=== PATIENT | male | born 1960 | race Caucasian/White ===

== ENCOUNTER → 2016-12-11 | Outpatient (CLI) | payer MEDICARE, OTHER ==
[~2016-12-11] MED LIST: REGADENOSON 0.4 MG/5 ML SYRINGE IV ONE
--- NOTE | 2016-12-11 13:03 | NM ---
EXAMINATION TYPE: NM stress lexiscan cardiolite DATE OF EXAM: 12/11/2016 10:40 AM COMPARISON: 02/12/2013 HISTORY: Presurgical evaluation TECHNIQUE: After the intravenous administration of 10.2 mCi Tc 99m Sestamibi - Cardiolite resting SP ECT images acquired 45 minutes post injection. The patient received 0.4mg Lexiscan, 26.6 mCi Tc 99m Sestamibi - Stress images obtained [address] injection FINDINGS: Gated analysis shows normal wall motion with an estimated left ventricular ejection fraction of 61 % . There is diminished radiotracer accumulation along the inferior wall on resting images. This area is better visualized on the stress images. Prior infarct along the inferior wall should be considered. T his is an interval change from 2012. Gated wall motion is some mild distal anterior wall dyskinesia or hypokinesia. IMPRESSION: 1. No stress-induced ischemic changes. 2. Prior infarct inferior wall. 3. Mild hypokinesia or dyskinesia distal anterior wall.
--- NOTE | 2016-12-11 13:51 | EST ---
DATE OF SERVICE: 12/11/2016 AGE: 56Y SEX: M HT: 5'8: WT: 170 lbs. Lexiscan Cardiolite Stress Test *Heart Rate Blood Pressure *Rest: 64 Rest: 136/90 * *Max. Achieved: 94 Maximum BP: 145/90 85% PMHR: 139 100% PMHR: 163 *METS: - INDICATIONS: Preoperative. MEDICATIONS: Simvastatin, aspirin, [place]. CLINICAL INFORMATION: Preop evaluation, palpitations, hypercholesterolemia, family history of coronary artery disease, history of smoking 1 pack of cigarettes a day for 30 years. Quit smoking about a year ago. Patient is on simvastatin, aspirin, [place]. Going for surgery. Resting ECG shows sinus rhythm, rate of 64 beats per minutes, ID interval of 0.16, QRS 0.12, complete right bundle branch block. Using a standard Lexiscan protocol, Lexiscan was given IV push followed by serial EKGs without chest pain or pressure or ST segment deviations indicative of ischemia or cardiac arrhythmias. Patient tolerated the procedure very well. There were no complications during or at the completion of the procedure. IMPRESSION: 1. Baseline rhythm is sinus with complete right bundle-branch block, normal sinus rhythm. 2. Negative Lexiscan Cardiolite study. 3. Nuclear scintigrams to follow from Radiology Department.
== END | disposition home or self-care (01) ==
LOC: RADNMMAIN 07:53
PROVIDERS: ATTEND Family Medicine
DX: Z01.818 Encounter for other preprocedural examination (principal)
CPT/HCPCS: 93017; 78452; A9500; J2785

== ENCOUNTER 2022-09-22 16:08 | Emergency (ER) | payer MEDICARE, OTHER ==
--- NOTE | 2022-09-22 16:23 | ED ---
General Adult HPI - General Chief complaint: Chest Pain Stated complaint: chest pain - sent from urgent care Time Seen by Provider: 09/22/22 16:21 Source: patient Mode of arrival: ambulatory Limitations: no limitations - History of Present Illness Initial comments: Patient presents to the ED with his friend (sent from urgent care) complaining of having sharp and pleuritic left lateral chest pain since this morning. Patient states that his pain is worse with deep inspiration and with certain movements of his left arm and torso. Patient denies any known trauma or injury. Patient denies radiation of his pain, fever or chills, headache, focal neuro deficit, neck/arm/jaw/back pain, dyspnea, cough or cold symptoms, palpitations, dizziness, nausea/vomiting/diaphoresis, abdominal pain, dysuria or urinary symptoms, leg or calf swelling or pain, or any other symptoms or complaints. Patient states that he took a single baby aspirin this morning. - Related Data Home Medications Medication Instructions Recorded Confirmed Aspirin 81 mg PO DAILY 09/22/22 09/22/22 Meclizine HCl 25 mg PO TID PRN 09/22/22 09/22/22 Omeprazole [PriLOSEC] 20 mg PO DAILY 09/22/22 09/22/22 Simvastatin [Zocor] 20 mg PO HS 09/22/22 09/22/22 Tamsulosin [Flomax] 0.4 mg PO DAILY 09/22/22 09/22/22 Allergies Allergy/AdvReac Type Severity Reaction Status Date / Time No Known Allergies Allergy Verified 09/22/22 18:23 Review of Systems ROS Statement: Those systems with pertinent positive or pertinent negative responses have been documented in the HPI. ROS Other: All systems not noted in ROS Statement are negative. Past Medical History Past Medical History: Hyperlipidemia Additional Past Medical History / Comment(s): vertigo History of Any Multi-Drug Resistant Organisms: None Reported Past Surgical History: Ablation, Joint Replacement Additional Past Surgical History / Comment(s): left hip replacement, Past Psychological History: No Psychological Hx Reported Smoking Status: Former smoker Past Alcohol Use History: None Reported Past Drug Use History: Marijuana General Exam Limitations: no limitations General appearance: alert, in no apparent distress Head exam: Present: atraumatic, normocephalic Eye exam: Present: normal appearance, EOMI ENT exam: Present: mucous membranes moist Neck exam: Present: other (Trachea is in midline) Respiratory exam: Present: normal lung sounds bilaterally, other (Left anterolateral chest wall tenderness which reproduces the patient's pain; no ecchymosis, rash, deformity or crepitation is appreciated). Absent: respiratory distress, wheezes, rales, rhonchi, stridor Cardiovascular Exam: Present: regular rate, normal rhythm, normal heart sounds, other (Normal radial pulses bilaterally ) GI/Abdominal exam: Present: soft. Absent: distended, tenderness, guarding Extremities exam: Present: other (Negative Homans sign bilaterally ). Absent: tenderness, pedal edema, calf tenderness Neurological exam: Present: alert, oriented X3. Absent: motor sensory deficit Psychiatric exam: Present: normal affect, normal mood Skin exam: Present: warm, dry, intact, normal color Course Vital Signs 09/22/22 09/22/22 16:12 17:21 Temperature 97.2 F L Pulse Rate 65 63 Respiratory 18 20 Rate Blood Pressure 141/84 116/68 O2 Sat by Pulse 97 98 Oximetry - Reevaluation(s) Reevaluation #1: 09/22/22 19:26 Patient denies development of any new pain or symptoms while in the ED. Patient remains alert and breathing comfortably with a normal room air oxygen saturation. Patient and friend are aware the patient's test results, and patient feels comfortable being discharged home at this time. Patient was c ounseled about pleuritic chest pain/chest wall pain, and he was clearly explained return and follow-up instructions. Patient was instructed to follow up closely with his primary care provider. Patient feels comfortable with this plan. EKG Findings - EKG Comments: EKG Findings:: ED physician interpretation: Sinus bradycardia, ventricular rate of 58 bpm, no ectopy, right bundle branch block, normal MS interval, QRS duration of 130 ms, normal QT interval, normal axis, no ST abnormality Medical Decision Making - Medical Decision Making Was pt. sent in by a medical professional or institution (, PA, AUTOMOTIVE ELECTRICAL FITTER, urgent care, hospital, or long term...) When possible be specific @ -[No] Did you speak to anyone other than the patient for history (EMS, parent, family, police, friend...)? What history was obtained from this source @ -[No] Did you review nursing and triage notes (agree or disagree)? Why? @ -[I reviewed and agree with nursing and triage notes] Were old charts reviewed (outside hosp., previous admission, EMS record, old EKG, old radiological studies, urgent care reports/EKG's, long term records)? Report findings @ -[No old charts were reviewed] Differential Diagnosis (chest pain, altered mental status, abdominal pain women, abdominal pain men, vaginal bleeding, weakness, fever, dyspnea, syncope, headache, dizziness, GI bleed, back pain, seizure, CVA, palpatations, mental health)? @ -Differential Chest Pain: Stable Angina, Unstable Angina, STEMI, NSTEMI, Pneumothorax, Musculoskeletal, GERD, pleurisy, muscle strain, this is not meant to be an all-inclusive list. EKG interpreted by me (3pts min.). @ -[As above] X-rays interpreted by me (1pt min.). @ -Chest x-ray is negative CT interpreted by me (1pt min.). @ -[None done] U/S interpreted by me (1pt. min.). @ -[None done] What testing was considered but not performed or refused? (CT, X-rays, U/S, labs)? Why? @ -[None] What meds were considered but not given or refused? Why? @ -[None] Did you discuss the management of the patient with other professionals (professionals i.e. , PA, AUTOMOTIVE ELECTRICAL FITTER, lab, RT, psych nurse, manager social media, product handler, te acher, forward air controller/air officer, correctional case manager)? Give summary @ -[No] Was smoking cessation discussed for >3mins.? @ -[No] Was critical care preformed (if so, how long)? @ -[No] Were there social determinants of health that impacted care today? How? (Homelessness, low income, unemployed, alcoholism, drug addiction, transportation, low edu. Level, literacy, decrease access to med. care, long-term, re hab)? @ -[No] Was there de-escalation of care discussed even if they declined (Discuss DNR or withdrawal of care, Hospice)? DNR status @ -[No] What co-morbidities impacted this encounter? (DM, HTN, Smoking, COPD, CAD, Cancer, CVA, ARF, Chemo, Hep., AIDS, mental health diagnosis, sleep apnea, morbid obesity)? @ -Hyperlipidemia Was patient admitted / discharged? Hospital course, mention meds given and route, prescriptions, significant lab abnormalities, going to OR and other pertinent info. @ -Patient reports that he has had sharp and pleuritic left lateral chest pain, which is worse with certain movements of his torso and left arm. Patient's chest pain is reproducible with palpation. Patient's d-dimer and troponin are within normal limits. Patient's chest x-ray is unremarkable. Patient's EKG is negative for any acute ischemic findings. He shouldn't is breathing comfortably with a normal room air oxygen saturation. I suspect that the patient's chest pain is likely chest wall in etiology. I do not suspect an emergent medical condition at this time. Will discharge patient home at this time. Patient feels comfortable with this plan. Undiagnosed new problem with uncertain prognosis? @ -[No] Drug Therapy requiring intensive monitoring for toxicity (Heparin, Nitro, Insulin, Cardizem)? @ -[No] Were any procedures done? @ -[No] Diagnosis/symptom? @ -[Pleuritic chest pain; suspected chest wall pain] Acute, or Chronic, or Acute on Chronic? @ -Acute Uncomplicated (without systemic symptoms) or Complicated (systemic symptoms)? @ -[default] Side effects of treatment? @ -[No] Exacerbation, Progression, or Severe Exacerbation? @ -[No] Poses a threat to life or bodily function? How? (Chest pain, [place], [place], pneumonia, PE, COPD, DKA, ARF, appy, cholecystitis, CVA, Diverticulitis, Homicidal, Suicidal, threat to staff... and all critical care pts) @ -[No] - Lab Data Result diagrams: 09/22/22 16:32 09/22/22 16:32 Lab Results 09/22/22 09/22/22 09/22/22 Range/Units 16:32 16:32 16:32 WBC 9.8 (3.8-10.6) k/uL RBC 4.95 (4.30-5.90) m/uL Hgb 15.2 (13.0-17.5) gm/dL Hct 44.1 (39.0-53.0) % MCV 89.0 (80.0-100.0) fL MCH 30.6 (25.0-35.0) pg MCHC 34.4 (31.0-37.0) g/dL RDW 12.8 (11.5-15.5) % Plt Count 212 (150-450) k/uL MPV 8.7 Neutrophils % 62 % Lymphocytes % 22 % Monocytes % 7 % Eosinophils % 6 % Basophils % 1 % Neutrophils # 6.1 (1.3-7.7) k/uL Lymphocytes # 2.1 (1.0-4.8) k/uL Monocytes # 0.7 (0-1.0) k/uL Eosinophils # 0.6 (0-0.7) k/uL Basophils # 0.1 (0-0.2) k/uL PT 10.6 (9.0-12.0) sec INR 1.0 (<1.2) APTT 23.0 (22.0-30.0) sec D-Dimer <0.17 (<0.60) mg/L FEU Sodium 139 (137-145) mmol/L Potassium 5.2 H (3.5-5.1) mmol/L Chloride 106 (98-107) mmol/L Carbon Dioxide 27 (22-30) mmol/L Anion Gap 6 mmol/L BUN 21 H (9-20) mg/dL Creatinine 0.80 (0.66-1.25) mg/dL Est GFR (CKD-EPI)AfAm >90 (>60 ml/min/1.73 sqM) Est GFR (CKD-EPI)NonAf >90 (>60 ml/min/1.73 sqM) Glucose 85 (74-99) mg/dL Calcium 9.4 (8.4-10.2) mg/dL Magnesium 2.1 (1.6-2.3) mg/dL Total Bilirubin 0.6 (0.2-1.3) mg/dL AST 30 (17-59) U/L ALT 29 (4-49) U/L Alkaline Phosphatase 55 (38-126) U/L Troponin I (0.000-0.034) ng/mL NT-Pro-B Natriuret Pep pg/mL Total Protein 7.2 (6.3-8.2) g/dL Albumin 4.3 (3.5-5.0) g/dL 09/22/22 09/22/22 Range/Units 16:32 16:32 WBC (3.8-10.6) k/uL RBC (4.30-5.90) m/uL Hgb (13.0-17.5) gm/dL Hct (39.0-53.0) % MCV (80.0-100.0) fL MCH (25.0-35.0) pg MCHC (31.0-37.0) g/dL RDW (11.5-15.5) % Plt Count (150-450) k/uL MPV Neutrophils % % Lymphocytes % % Monocytes % % Eosinophils % % Basophils % % Neutrophils # (1.3-7.7) k/uL Lymphocytes # (1.0-4.8) k/uL Monocytes # (0-1.0) k/uL Eosinophils # (0-0.7) k/uL Basophils # (0-0.2) k/uL PT (9.0-12.0) sec INR (<1.2) APTT (22.0-30.0) sec D-Dimer (<0.60) mg/L FEU Sodium (137-145) mmol/L Potassium (3.5-5.1) mmol/L Chloride (98-107) mmol/L Carbon Dioxide (22-30) mmol/L Anion Gap mmol/L BUN (9-20) mg/dL Creatinine (0.66-1.25) mg/dL Est GFR (CKD-EPI)AfAm (>60 ml/min/1.73 sqM) Est GFR (CKD-EPI)NonAf (>60 ml/min/1.73 sqM) Glucose (74-99) mg/dL Calcium (8.4-10.2) mg/dL Magnesium (1.6-2.3) mg/dL Total Bilirubin (0.2-1.3) mg/dL AST (17-59) U/L ALT (4-49) U/L Alkaline Phosphatase (38-126) U/L Troponin I <0.012 (0.000-0.034) ng/mL NT-Pro-B Natriuret Pep 58 pg/mL Total Protein (6.3-8.2) g/dL Albumin (3.5-5.0) g/dL - Radiology Data Chest x-ray: No acute cardiopulmonary disease/process. Disposition Clinical Impression: Pleuritic chest pain Narrative: Suspected chest wall pain Disposition: HOME SELF-CARE Condition: Stable Instructions (If sedation given, give patient instructions): Chest Pain (ED), Pleurisy (ED), Chest Wall Pain (ED) Additional Instructions: Return to the ER immediately should you develop new or worsening pain, shortness of breath, a fever, vomiting, feeling dizzy or faint, or new or worsening symp toms. Follow up closely with your primary care provider. Is patient prescribed a controlled substance at d/c from ED?: No Referrals: Baldmoero Watts DO [Primary Care Provider] - 1-2 days Time of Disposition: 19:31
[2022-09-22] MEDS ORDERED: KETOROLAC 15 MG/ML 1 ML VIAL IM STA (16:30)
[2022-09-22] MEDS ORDERED: SODIUM CHLORIDE 0.9% 500 ML 500 ML IV STA (16:30)
[2022-09-22 16:58] LABS: Basophils # (A) 0.1 k/uL (0-0.2); Basophils % (A) 1 %; Eosinophils # (A) 0.6 k/uL (0-0.7); Eosinophils % (A) 6 %; HCT 44.1 % (39.0-53.0); HGB 15.2 gm/dL (13.0-17.5); Lymphocytes # (A) 2.1 k/uL (1.0-4.8); Lymphocytes % (A) 22 %; MCH 30.6 pg (25.0-35.0); MCHC 34.4 g/dL (31.0-37.0); Mean Platelet Volume 8.7; Monocytes # (A) 0.7 k/uL (0-1.0); Monocytes % (A) 7 %; Neutrophils # (A) 6.1 k/uL (1.3-7.7); Neutrophils % (A) 62 %; Platelet Count 212 k/uL (150-450); RBC 4.95 m/uL (4.30-5.90); RDW 12.8 % (11.5-15.5); WBC 9.8 k/uL (3.8-10.6)
[2022-09-22 17:01] LABS: ALT 29 U/L (4-49); AST 30 U/L (17-59); African American GFR (CKD) >90 (>60 ml/min/1.73 sqM); Albumin 4.3 g/dL (3.5-5.0); Alkaline Phosphatase 55 U/L (38-126); Anion Gap 6 mmol/L; Blood Urea Nitrogen 21 mg/dL (9-20); Calcium 9.4 mg/dL (8.4-10.2); Carbon Dioxide 27 mmol/L (22-30); Chloride 106 mmol/L (98-107); Glucose 85 mg/dL (74-99); Magnesium 2.1 mg/dL (1.6-2.3); Non-African American GFR(CKD) >90 (>60 ml/min/1.73 sqM); Potassium 5.2 mmol/L (3.5-5.1); Sodium 139 mmol/L (137-145); Total Bilirubin 0.6 mg/dL (0.2-1.3); Total Protein 7.2 g/dL (6.3-8.2)
[2022-09-22] MEDS ORDERED: KETOROLAC 15 MG/ML 1 ML VIAL IVP STA (17:18)
[2022-09-22 17:32] LABS: Prothrombin Time 10.6 sec (9.0-12.0)
--- NOTE | 2022-09-22 18:37 | XR ---
EXAMINATION TYPE: XR chest 1V portable DATE OF EXAM: 09/22/2022 5:09 PM COMPARISON: Chest x-ray 03/09/2013 TECHNIQUE: XR chest 1V portable . CLINICAL INDICATION:Male, 62 years old with history of chest pain; FINDINGS: Lungs/Pleura: There is no evidence of pleural effusion, focal consolidation, or pneumothorax. Pulmonary vascularity: Unremarkable. Heart/mediastinum: Cardiomediastinal silhouette is unremarkable. Musculoskeletal: Degenerative changes of the acromioclavicular joints. No acute osseous abnormalities . IMPRESSION: No acute cardiopulmonary disease/process.
[2022-09-22 20:13] VITALS: BP 124/62; PULSE 67; RESP 18; TEMP 98.2
== END 2022-09-22 19:40 | disposition home or self-care (01) ==
LOC: EC 16:08
DX: R07.81 Pleurodynia (principal); E78.5 Hyperlipidemia, unspecified; F12.90 Cannabis use, unspecified, uncomplicated; E11.10 Type 2 diabetes mellitus with ketoacidosis without coma; I10 Essential (primary) hypertension; I21.9 Acute myocardial infarction, unspecified; I25.10 Atherosclerotic heart disease of native coronary artery without angina pectoris; J44.9 Chronic obstructive pulmonary disease, unspecified; Z59.00 Homelessness unspecified; Z79.899 Other long term (current) drug therapy; Z87.891 Personal history of nicotine dependence; Z79.82 Long term (current) use of aspirin
CPT/HCPCS: 36415; 93005; 85379; 83880; 80053; 83735; 84484; 85025; 85610; 85730; 71045; 99285; 96374; 96361; J1885

== ENCOUNTER → 2024-06-23 | Outpatient (CLI) | payer MEDICARE, OTHER ==
--- NOTE | 2024-06-23 13:28 | XR ---
EXAMINATION TYPE: XR chest 2V DATE OF EXAM: 06/23/2024 COMPARISON: 09/22/2022 HISTORY: 63-year-old male [id number], cough TECHNIQUE: Frontal and lateral views FINDINGS: Heart normal size. Mild of the aortic arch calcifications. No consolidation or pleural effusion. Mild hyperinflation. Severe degenerative change right AC joint. [facility] throughout the mid thoracic spine. IMPRESSION: Suspect underlying COPD. No acute process seen. [facility], , 06/23/2024 1:26 PM
== END | disposition home or self-care (01) ==
LOC: RADXRYALE 11:50
PROVIDERS: ATTEND Physician Assistant Medical
DX: I70.0 Atherosclerosis of aorta (principal)
CPT/HCPCS: 71046